=== PATIENT | male | born 1980 | race Caucasian/White ===

== ENCOUNTER 2016-11-07 13:34 | Emergency (ER) | payer MEDICAID ==
[~2016-11-07] VITALS: Ht 170.2 cm; Wt 88.0 kg
[~2016-11-07 13:34] MED LIST: CLIN1CAP5 PO; NAPR500T PO; OXYC30TA PO
[2016-11-07 13:43] VITALS: BP 135/102; PULSE 112; RESP 16; TEMP 98.8; O2SAT 98
[2016-11-07] MEDS ORDERED: BACT800T5 PO (14:11)
[2016-11-07] MEDS ORDERED: CEPH-460 PO (14:11)
[2016-11-07] MEDS ORDERED: SULFAMETHOXAZOLE-TRIMETHOPRIM DS 800-160 MG TAB PO ONE (14:15)
[2016-11-07] MEDS ORDERED: CEPHALEXIN MONOHYDRATE 500 MG CAP PO ONE (14:15)
--- NOTE | 2016-11-07 14:22 | PD ---
HPI Chief Complaint: Skin Problem Time Seen by Provider: 14:00 Travel History International Travel<30 days: No Contact w/Intl Traveler<30days: No Traveled to known affect area: No History of Present Illness HPI 36-year-old male presents for evaluation of sores in the arms. Symptoms started 1 week ago. He works in [employer], he believes that maybe he was bit by a bug or spider. He does not recall any bites or puncture wounds. He denies any fevers or chills. He denies any IV drug abuse. He has no other complaints at this time. 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 The patient has a few areas of 1 cm circular induration and erythema on the right forearm, one similar lesion on the left forearm. There is some drainage from 2 of the lesions on the right forearm. A wound culture was performed. HEAD: Atraumatic. Normocephalic. EYES: Pupils equal and round. No scleral icterus. No injection or drainage. ENT: No nasal bleeding or discharge. Mucous membranes pink and moist. NECK: Trachea midline. No JVD. CARDIOVASCULAR: Regular rate and rhythm. No murmur appreciated. RESPIRATORY: No accessory muscle use. Clear to auscultation. Breath sounds equal bilaterally. GASTROINTESTINAL: Abdomen soft, non-tender, nondistended. Hepatic and splenic margins not palpable. Data Data Last Documented VS Vital Signs Date Time Temp Pulse Resp B/P Pulse Ox O2 Delivery O2 Flow Rate FiO2 11/07/16 13:43 98.8 112 16 135/102 98 Orders Sulfamet-Trimeth Ds 800-160 Mg (Bactrim (11/07/16 14:15) Cephalexin (Keflex) (11/07/16 14:15) Wound Culture And Gram Stain (11/07/16 14:11) [facility] Medical Decision Making Medical Screen Exam Complete: Yes Emergency Medical Condition: Yes Medical Record Reviewed: Yes Differential Diagnosis Cellulitis, infected bug bite, abscess Narrative Course Examination reveals mild cellulitis in both arms secondary to likely bug bites based on the presentation. A wound culture was performed. He has had wound cultures in the past grow out MRSA, group A strep. He will therefore be discharged empirically on Keflex and Bactrim. Diagnosis Primary Impression: Cellulitis of arm, right Additional Impression: Cellulitis of arm, left Additional Instructions: Medication as prescribed. Wash gently with soap and water and apply antibiotic cream daily. Return for evidence of worsening infection. Med/Other Pt SpecificInfo: Prescription(s) given Scripts Cephalexin (Keflex)500 Mg [id number] Mg PO Q8H #30 CAP Ref 0 Prov:Noble Ríos MD 11/07/16 Sulfamethoxazole-Trimethoprim (Bactrim DS)800-160 Mg Tab1 Tab PO BID #20 TAB Ref 0 Prov:Noble Ríos MD 11/07/16 Disposition: 01 DISCHARGE HOME Condition: Stable Reed Ness Nov 07, 2016 14:22
== END 2016-11-07 14:51 | disposition home or self-care (01) ==
LOC: PHED 13:34
DX: L03.113 Cellulitis of right upper limb (principal); L03.114 Cellulitis of left upper limb; B95.62 Methicillin resistant Staphylococcus aureus infection as the cause of diseases classified elsewhere; F17.210 Nicotine dependence, cigarettes, uncomplicated; F12.90 Cannabis use, unspecified, uncomplicated; F15.90 Other stimulant use, unspecified, uncomplicated
CPT/HCPCS: 86403; 87070; 87186; 87205; 99284